=== PATIENT | male | born 1975 | race Caucasian/White ===

== ENCOUNTER 2017-10-12 06:01 | Day surgery (SDC) | payer MEDICAID ==
[~2017-10-12] VITALS: Ht 175.3 cm; Wt 90.7 kg
[2017-10-12 06:44] LABS: HEMATOCRIT 41.3 % (36-52); HEMOGLOBIN 13.7 g/dL (12.0-18.0); MEAN CORPUSCULAR HEMOGLOBIN 30 pg (27-31); MEAN CORPUSCULAR HGB CONC 33 g/dL (33-37); MEAN CORPUSCULAR VOLUME 90 fL (80-94); PLATELET COUNT (AUTO) 122 K/uL (140-450); RED BLOOD CELL COUNT(AUTO) 4.58 MIL/uL (4.20-6.10); RED CELL DISTRIBUTION WIDTH 13.1 % (11.6-13.7); WHITE BLOOD COUNT (AUTO) 3.9 K/uL (4.8-10.8)
[2017-10-12 07:05] LABS: BILIRUBIN,DIRECT 0.3 mg/dL (0.0-0.3); TOTAL BILIRUBIN 0.9 mg/dL (0.0-1.0)
[2017-10-12 07:22] LABS: LYMPHOCYTES % (MANUAL) 35 % (20-46); MONOCYTES % (MANUAL) 9 % (5-12)
[2017-10-12 07:37] LABS: PROTHROMBIN TIME 11.3 secs (10.8-13.4)
[2017-10-12] MEDS ORDERED: LIDOCAINE 2% 1000 MG/50 ML VIAL INJ ONE (08:43)
[2017-10-12] MEDS ORDERED: HYDROmorphone 1 MG/ML AMP IVP PRN (09:10)
[2017-10-12] MEDS ORDERED: HYDROmorphone 1 MG/ML AMP IM PRN (09:30)
[2017-10-12] MEDS ORDERED: HYDROmorphone PFS 2 MG/ML SYR ONE (09:36)
== END 2017-10-12 10:08 | disposition home or self-care (01) ==
LOC: MDS 06:01 → MMU 06:08 → MDS 10:08
PROVIDERS: ATTEND Internal Medicine Gastroenterology
DX: B18.2 Chronic viral hepatitis C (principal); E66.01 Morbid (severe) obesity due to excess calories; Z87.891 Personal history of nicotine dependence
CPT/HCPCS: 36415; 47000; 76942; 80076; 85025; 85610; 85730; 87522; 87902; 88307; 88313; J1170; J2001; Q0092